=== PATIENT | male | born 1980 | race African-American/Black ===

== ENCOUNTER 2020-05-04 15:36 | Emergency (ER) | payer MEDICAID ==
[~2020-05-04] VITALS: Ht 177.8 cm; Wt 104.3 kg
--- NOTE | 2020-05-04 15:45 | NUR ---
ED Nurse Note: pt presents to ED c/o hematuria and urinary urgency x 2 days. pt reports that he holds in his urine often while at work and noticed the pain radiates to his bilat flank. denies N/V, fevers or chills
[2020-05-04 15:46] VITALS: BP 132/75
--- NOTE | 2020-05-04 16:29 | Emergency Room Report ---
History of Present Illness General Chief Complaint: Male Urogenital Problems Source: Patient Present Illness HPI 39-year-old male with past medical history of gout and hypertension presents today with bilateral flank pain and 2 episodes of hematuria. He states his first episode of hematuria was a couple weeks ago which resolved and then returned 4 days ago. Patient states flank pain has currently resolved however when he had it it was bilateral, severity was mild, quality is throbbing, he states he not try anything to make it better or worse and he denies any other associated signs or symptoms. Denies any testicular or scrotal pain, denies any penile lesions. PMH: Hypertension and gout PSH: [Denies] Smoking: Yes to cigarettes Ethanol: [Denies] Drug: Yes to marijuana Allergies: Coded Allergies: No Known Allergies (Unverified , 05/04/20) COVID-19 Screening Contact w/high risk pt: No Experienced COVID-19 symptoms?: No COVID-19 Testing performed DIRECTOR OF HOUSING: No Nursing Documentation-PMH Hx Hypertension: Yes - gout Review of Systems Narrative Review of systems: CONST: No fevers or chills, No night sweats EYES: No eye pain, vision change, eye discharge HEAD/EARS/NOSE/THROAT: No earache, sore throat, or nasal discharge. PULMONARY: No SOB, no cough, no wheezing CARDIAC: No chest pain, No palpitations, no leg swelling GI: No abdominal pain, no vomiting, no diarrhea , no melena or BRBPR : + bilateral flank pain, no dysuria, + hematuria, no frequency. MUSCULOSKELETAL: No back pain, no neck pain, no leg pain SKIN: No rash, no itching, no bruising NEUROLOGICAL: No headache, no dizziness, no paresthesia , no focal weakness. 14 point Review of Systems is otherwise negative except per HPI Physical Exam Vital Signs Date Time Temp Pulse Resp B/P (MAP) Pulse Ox O2 Delivery O2 Flow Rate FiO2 05/04/20 15:41 98.6 87 15 132/75 (94) 97 Room Air Other Organ Systems Physical Exam: GENERAL: Awake, alert, nontoxic, in no acute distress EYES: EOMI, conjunctiva without pallor HEAD/EARS/NOSE/THROAT: NCAT, oral mucosa moist, external nose and ear normal in appearance, oropharynx clear, no swelling or exudates. NECK: supple, nontender, no spasm, no JVD, no cervical adenopathy RESPIRATORY: no stridor, effort normal, no retractions, no accessory muscle use, BS clear bilaterally, no wheezes, no rhonchi, no rales, no rub. CARDIOVASCULAR: RRR, normal S1 S2, no murmur, no peripheral edema ABDOMINAL /GI: soft, nondistended, nontender, BS normal, no masses, no guarding, no Mcburneys point tenderness, no rebound, no Murpheys sign : No CVA tenderness MUSCULOSKELETAL: All extremities are non-tender, no swelling, FROM, normal strength, normal sensation, cap refill <2 seconds in all extremities EXTREMITIES: no leg swelling, pulses: 2+ brisk and normal in all distal extremities SKIN: No rash, skin is warm and dry. No cyanosis, no pallor NEUROLOGICAL: awake, alert and appropriate, oriented x3, speech normal, motor and sensation grossly intact PSYCHIATRIC: Normal mood, normal affect Medical Decision Making PA Attestation Dr. Deras Is my supervising Physician whom patient management has been discussed with. ER Course Patient presents today with bilateral flank pain with history of hematuria. Labs and imaging were ordered to rule out my differentials of nephrolithiasis, bladder or renal mass, septic stone, urinary tract infection. Urinalysis revealed evidence of infection however patient had no elevated white blood cell count. CT scan revealed evidence of cystitis. There was also note on the CT scan of minimal inflammation of the colon possibly representing colitis however will not treat at this time, suspect is most likely viral and patient is not reporting any abdominal pain vomiting or diarrhea. We will treat patient for cystitis however given patient was having flank pain will also cover for pyelonephritis at this time however I do not suspect severe pyelonephritis given patient has no fever, CVA tenderness or vomiting. Patient will be given 1 dose of Rocephin while here in ER and discharged home with Keflex. He is currently not complaining of any flank pain. He was advised to follow-up with his primary care physician for referral to urology for the hematuria given his history of smoking. He was also advised to follow-up with his primary care doctor in regards to the mass found on the CT scan. Patient states he understands and agrees to the plan. Otherwise stable for outpatient care and discharge home. Of note patient also requesting refill for his lisinopril hydrochlorothiazide medication, refilled medication for 14 days advised patient to follow-up with his primary care physician for further medication. Also gave patient p rescription for ibuprofen for pain as needed. Laboratory Tests Test 05/04/20 16:50 White Blood Count 7.7 K/UL (4.8-10.8) Red Blood Count 4.93 M/UL (4.70-6.10) Hemoglobin 14.7 G/DL (14.2-18.0) Hematocrit 42.0 % (42.0-52.0) Mean Corpuscular Volume 85 FL (80-99) Mean Corpuscular Hemoglobin 29.8 PG (27.0-31.0) Mean Corpuscular Hemoglobin Concent 35.0 G/DL (32.0-36.0) Red Cell Distribution Width 13.4 % (11.6-14.8) Platelet Count 191 K/UL (150-450) Mean Platelet Volume 7.5 FL (6.5-10.1) Neutrophils (%) (Auto) 42.8 % (45.0-75.0) L Lymphocytes (%) (Auto) 45.8 % (20.0-45.0) H Monocytes (%) (Auto) 7.9 % (1.0-10.0) Eosinophils (%) (Auto) 1.4 % (0.0-3.0) Basophils (%) (Auto) 2.1 % (0.0-2.0) H Urine Color Pale yellow Urine Appearance Clear Urine pH 7 (4.5-8.0) Urine Specific Parrish 1.005 (1.005-1.035) Urine Protein Negative (NEGATIVE) Urine Glucose (UA) Negative (NEGATIVE) Urine Ketones Negative (NEGATIVE) Urine Blood 2+ (NEGATIVE) H Urine Nitrite Negative (NEGATIVE) Urine Bilirubin Negative (NEGATIVE) Urine Urobilinogen Normal MG/DL (0.0-1.0) Urine Leukocyte Esterase 1+ (NEGATIVE) H Urine RBC 0-2 /HPF (0 - 0) H Urine WBC 10-15 /HPF (0 - 0) H Urine Squamous Epithelial Cells None /LPF (NONE/OCC) Urine Bacteria Occasional /HPF (NONE) Sodium Level 136 MMOL/L (136-145) Potassium Level 4.4 MMOL/L (3.5-5.1) Chloride Level 102 MMOL/L (98-107) Carbon Dioxide Level 27 MMOL/L (21-32) Anion Gap 7 mmol/L (5-15) Blood Urea Nitrogen 13 mg/dL (7-18) Creatinine 1.1 MG/DL (0.55-1.30) Estimated Glomerular Filtration Rate > 60 mL/min (>60) Glucose Level 99 MG/DL (74-106) Calcium Level 8.7 MG/DL (8.5-10.1) Total Bilirubin 0.3 MG/DL (0.2-1.0) Aspartate Amino Transferase (AST) 23 U/L (15-37) Alanine Aminotransferase (ALT) 25 U/L (12-78) Alkaline Phosphatase 59 U/L (46-116) Total Protein 8.3 G/DL (6.4-8.2) H Albumin 4.2 G/DL (3.4-5.0) Globulin 4.1 g/dL Albumin/Globulin Ratio 1.0 (1.0-2.7) CT/MRI/US Diagnostic Results CT/MRI/US Diagnostic Results : Imaging Test Ordered: CT scan of A&P with IV contrast Impression IMPRESSION: 1. Ground-glass nodule at the right lung base which should be followed and worked up based on Fleischner Societyguidelines. 2. Fattyliver. 3. Gallbladder is unremarkable. 4. No renal calculus or hydronephrosis appeared 5. The appendix is unremarkable. 6. Minimal diffuse wall thickening of the distal transverse colon extending to the descending colon and the proximal sigmoid colon worrisome for mild or earlyinflammatoryor infectious colitis. 7. Findingsworrisome for cystitis. Radiologist: Pardeep Baptiste MD Electronically Signed: 05/04/20 19:04 Last Vital Signs Date Time Temp Pulse Resp B/P (MAP) Pulse Ox O2 Delivery O2 Flow Rate FiO2 05/04/20 15:46 98.6 15 132/75 97 Room Air 05/04/20 15:41 87 Status: improved Disposition: HOME, SELF-CARE Condition: Stable Scripts Ibuprofen* (MOTRIN*) 600 Mg Tablet 600 MG ORAL Q8H PRN for For Pain, #30 TAB 0 Refills Prov: Eloise Eubanks PA-C 05/04/20 Lisinopril/Hydrochlorothiazide 20-25 Mg Tab (LISINOPRIL-HCTZ 20-25 MG TAB) 1 Each Tablet 1 TAB ORAL DAILY for 14 Days, #14 TAB Prov: Eloise Eubanks PA-C 05/04/20 Cephalexin* (KEFLEX*) 500 Mg Capsule 500 MG ORAL EVERY 6 HOURS for 7 Days, #28 CAP Prov: Eloise Eubanks PA-C 05/04/20 Referrals: [facility] Patient Instructions: Hematuria, Adult, Urinary Tract Infection Additional Instructions: Take antibiotics as prescribed. Take ibuprofen as needed for pain. Of note you were found to have an abnormality on your imaging which will need to be reimaged in approximately 3 months. Cancer or malignancy is one of the possibilities so it needs to be monitored to ensure that it is not changing. It is important that you see your primary doctor to be referred for this imaging. Failure to do so could lead to an undetected worsening cancer illness. You will also need to follow-up with your primary care physician in regards to the blood in your urine. Follow up with a Primary Care Provider in 1-2 days, even if your symptoms have resolved. Return sooner to ED if new symptoms occur, or current symptoms become worse. - Please note that this Emergency Department Report was dictated using [employer] plate caulker technology software, occasionally this can lead to erroneous entry secondary to interpretation by the dictation equipment. Eloise Eubanks PA-C May 04, 2020 16:29
[2020-05-04] MEDS ORDERED: Omnipaque-300 100ml vial INJ PRN (16:30)
--- NOTE | 2020-05-04 16:40 | NUR ---
ED Nurse Note: IV line established, blood and urine collected and sent to lab
[2020-05-04 17:14] LABS: BASOPHILS % (AUTO) 2.1 % (0.0-2.0); EOSINOPHILS % (AUTO) 1.4 % (0.0-3.0); HEMOGLOBIN 14.7 G/DL (14.2-18.0); LYMPHOCYTES % (AUTO) 45.8 % (20.0-45.0); MEAN CORPUSCULAR VOLUME 85 FL (80-99); MONOCYTES % (AUTO) 7.9 % (1.0-10.0); NEUTROPHILS % (AUTO) 42.8 % (45.0-75.0); PLATELET COUNT 191 K/UL (150-450); RED BLOOD COUNT 4.93 M/UL (4.70-6.10); RED CELL DISTRIBUTION WIDTH 13.4 % (11.6-14.8); WHITE BLOOD COUNT 7.7 K/UL (4.8-10.8)
[2020-05-04 17:24] LABS: APPEARANCE,URINE CLEAR; BILIRUBIN, URINE NEGATIVE (NEGATIVE); COLOR,URINE PALE YELLOW; GLUCOSE, URINE (UA) NEGATIVE (NEGATIVE); KETONES,URINE NEGATIVE (NEGATIVE); LEUKOCYTE ESTERASE ,URINE 1+ (NEGATIVE); NITRITE,URINE NEGATIVE (NEGATIVE); PH,URINE 7 (4.5-8.0); PROTEIN,URINE NEGATIVE (NEGATIVE); UROBILINOGEN,URINE NORMAL MG/DL (0.0-1.0)
[2020-05-04 17:46] LABS: ANION GAP 7 mmol/L (5-15); BLOOD UREA NITROGEN 13 mg/dL (7-18); CALCIUM 8.7 MG/DL (8.5-10.1); CARBON DIOXIDE 27 MMOL/L (21-32); CHLORIDE 102 MMOL/L (98-107); CREATININE 1.1 MG/DL (0.55-1.30); POTASSIUM 4.4 MMOL/L (3.5-5.1); SODIUM 136 MMOL/L (136-145)
[2020-05-04 17:53] LABS: ALANINE AMINOTRANSFERASE 25 U/L (12-78); ALBUMIN 4.2 G/DL (3.4-5.0); ALKALINE PHOSPHATASE 59 U/L (46-116); ASPARTATE AMINO TRANSFERASE 23 U/L (15-37); BILIRUBIN,TOTAL 0.3 MG/DL (0.2-1.0)
--- NOTE | 2020-05-04 19:05 | Diagnostic Imaging Report ---
EXAM: CT Abdomen and Pelvis With Intravenous Contrast CLINICAL HISTORY: Abdominal pain radiating to the back. TECHNIQUE: Axial computed tomography images of the abdomen and pelvis with intravenous contrast. CTDI is 11.20 mGy and DLP is 617.70 mGy-cm. One or more of the following dose reduction techniques were used: automated exposure control, adjustment of the mA and/or kV according to patient size, use of iterative reconstruction technique. COMPARISON: No previous studies. FINDINGS: Lung bases: A 0.8 cm ground-glass nodule is noted posterior laterally at the right lung base best seen on series 5 image 9. Follow-up should proceed based on Fleischner Society guidelines. ABDOMEN: Liver: Diffuse fatty infiltration of the liver. The liver and the spleen enhance uniformly. Gallbladder and bile ducts: See below. Pancreas: See below. Spleen: See above. Adrenals: The adrenal glands, the head, body, tail of the pancreas, and the gallbladder are unremarkable. Kidneys and ureters: Both kidneys are shown to excrete contrast bilaterally. Bilateral simple renal cysts which requires no follow. No hydronephrosis. Stomach and bowel: Presumed ingested material in the stomach. Moderate quantity of stool throughout the colon. No evidence of bowel obstruction. Minimal diffuse wall thickening of the distal transverse colon extending to the descending colon and the proximal sigmoid colon. Findings suggestive of possible mild or early inflammatory or infectious colitis. PELVIS: Appendix: The appendix is seen on coronal image 25. Bladder: Mild diffuse wall thickening of the bladder suggested on coronal image 31. Reproductive: Prostate gland contains coarse central calcifications within it. ABDOMEN and PELVIS: Intraperitoneal space: Unremarkable. No free air. No significant fluid collection. Bones/joints: Mild degenerative disc disease of the visualized spine. Mild to moderate osteoarthritic changes about the sacral iliac joints. No spondylolysis or spinal listhesis per The sacrum and coccyx are unremarkable. The heart is normal in size. No acute fracture. No dislocation. Soft tissues: Ischiorectal fat is clean. Vasculature: Atherosclerotic disease of the abdominal aorta without change in caliber. Flow is demonstrated within the celiac, SMA, the renal arteries, and ELMA. Possible a 0.5 cm calcified aneurysm of the distal left renal artery. Portal vein is unremarkable. Lymph nodes: No retroperitoneal lymphadenopathy. No pelvic or inguinal lymphadenopathy. IMPRESSION: 1. Ground-glass nodule at the right lung base which should be followed and worked up based on Fleischner Society guidelines. 2. Fatty liver. 3. Gallbladder is unremarkable. 4. No renal calculus or hydronephrosis appeared 5. The appendix is unremarkable. 6. Minimal diffuse wall thickening of the distal transverse colon extending to the descending colon and the proximal sigmoid colon worrisome for mild or early inflammatory or infectious colitis. 7. Findings worrisome for cystitis.
[2020-05-04] MEDS ORDERED: cefTRIAXone 1 GM in NS 55 ML IVPB ONE (19:30)
[2020-05-04] MEDS ORDERED: Lidocaine 1% MPF 10mg/ml 5ml INJ ONE (19:30)
[2020-05-04] MEDS ORDERED: CEPHALEXIN500 MG ORAL ×2 (19:31→19:34)
[2020-05-04 20:10] VITALS: BP 132/75
--- NOTE | 2020-05-04 20:10 | NUR ---
ER DISCHARGE NOTE: Patient is cleared to be discharged per ERMD, pt is aox4, on room air, with stable vital signs. pt was given dc and prescription instructions, pt was able to verbalize understanding, pt id band and iv site removed without complications. pt is able to ambulate with steady gait. pt took all belongings.
[2020-05-04] MEDS ORDERED: LISINOPRIL-HCT1 EAC2 ORAL (20:25)
[2020-05-04] MEDS ORDERED: IBUPROFEN600 M1 ORAL (20:25)
== END 2020-05-04 20:10 | disposition home or self-care (01) ==
LOC: EMR 17:33
DX: R31.9 Hematuria, unspecified (principal); R10.9 Unspecified abdominal pain; I10 Essential (primary) hypertension; M10.9 Gout, unspecified; F17.210 Nicotine dependence, cigarettes, uncomplicated; Z79.899 Other long term (current) drug therapy; K76.0 Fatty (change of) liver, not elsewhere classified; R91.8 Other nonspecific abnormal finding of lung field
CPT/HCPCS: 36415; 74177; 80053; 81003; 85025; 87086; 96365; 96372; J0696; Q9965; Z7502; 99284